=== PATIENT | female | born 1985 | race African-American/Black ===

== ENCOUNTER 2017-07-25 17:38 | Emergency (ER) | payer OTHER, MEDICAID ==
[~2017-07-25] VITALS: Ht 165.1 cm; Wt 77.0 kg
[~2017-07-25 17:38] MED LIST: ACETAMINOPHEN 500MG TABLET PO NR; IRON-1 PO; PNV1TABL76 PO
[2017-07-25 17:55] VITALS: BP 123/59
== END 2017-07-25 18:44 | disposition home or self-care (01) ==
LOC: EDSTATUS 17:38 → ER 17:39
DX: O9A.212 Injury, poisoning and certain other consequences of external causes complicating pregnancy, second trimester (principal); S10.93XA Contusion of unspecified part of neck, initial encounter; M25.511 Pain in right shoulder; O26.892 Other specified pregnancy related conditions, second trimester; R10.9 Unspecified abdominal pain; V43.62XA Car passenger injured in collision with other type car in traffic accident, initial encounter; Y93.89 Activity, other specified; Y99.8 Other external cause status; Y92.410 Unspecified street and highway as the place of occurrence of the external cause; Z3A.25 25 weeks gestation of pregnancy; Z90.49 Acquired absence of other specified parts of digestive tract
CPT/HCPCS: 76805; 99281; 99284